=== PATIENT | female | born 1955 | race Caucasian/White ===

== ENCOUNTER → 2024-01-11 10:12 | Outpatient (REF) | payer MEDICARE, SELFPAY | LOC: HWWDC 10:12 | PROVIDERS: ATTENDING PHYSICIAN Obstetrics & Gynecology Gynecology; FAMILY PHYSICIAN Internal Medicine | DX: Z12.31 Encounter for screening mammogram for malignant neoplasm of breast (principal) | CPT/HCPCS: 77063; 77067 ==

== ENCOUNTER → 2024-08-15 09:34 | Outpatient (REF) | payer MEDICARE, SELFPAY ==
[2024-08-15 11:30] LABS: Hematocrit 42.8 % (37.0-47.0); Mean Corp Hgb Conc. 32.7 g/dL (33.0-37.0); Mean Corpuscular Volume 91.8 fL (81.0-99.0); Mean Platelet Volume 9.3 fL (7.4-10.4); Platelet Count 253 10^3/uL (130-400); Red Blood Cell Count 4.66 10^6/uL (4.20-5.40); Red Cell Dist. Width 13.1 % (11.5-14.5); White Blood Cell Count 6.8 10^3/uL (4.8-10.8)
[2024-08-15 11:55] LABS: Blood Urea Nitrogen 15 mg/dl (7-17); Calcium 9.6 mg/dl (8.4-10.2); Carbon Dioxide 28 mmol/L (22-30); Chloride 104 mmol/L (98-107); Glucose 112 mg/dl (70-99); Potassium 4.3 mmol/L (3.5-5.1); Sodium 142 mmol/L (135-145); eGFR > 60.00
== END ==
LOC: SDSPAT 09:34
PROVIDERS: ATTENDING PHYSICIAN Specialist; FAMILY PHYSICIAN Internal Medicine
DX: Z01.818 Encounter for other preprocedural examination (principal)
CPT/HCPCS: 36415; 80048; 85027; 93005

== ENCOUNTER 2024-08-20 06:19 | Day surgery (SDC) | payer MEDICARE, SELFPAY ==
--- NOTE | 2024-08-15 13:38 | PTCARENOTE ---
Preop EKG shows nonspecific T wave abnormality, see prior EKG scanned dated 09/29/21 showing prior history.
[2024-08-15 14:09] VITALS: BMI 19.8
[2024-08-20] VITALS (10 sets, daily range): BP systolic 92–149; BP diastolic 59–82; BMI 19.8
[2024-08-20] MEDS: NORMOSOL-R/PLASMALYTE-A 1000 IV (10:28)
[2024-08-20] MEDS: Pyridium 200 MG PO (15:59)
[2024-08-20] MEDS: DETROL LA 4 MG PO (15:59)
[2024-08-20] MEDS: ZOFRAN 4 MG IV (16:04)
[2024-08-20] MEDS: TYLENOL 650 MG PO (17:28)
== END 2024-08-20 17:53 | disposition home or self-care (01) ==
LOC: SDS 06:19
PROVIDERS: ATTENDING PHYSICIAN Specialist; FAMILY PHYSICIAN Internal Medicine
DX: N20.2 Calculus of kidney with calculus of ureter (principal)
CPT/HCPCS: 52356; 74018; 76000; 82365; A4300; C1894; C2617

== ENCOUNTER → 2024-12-18 08:11 | Outpatient (REF) | payer MEDICARE, SELFPAY ==
[2024-12-18 08:55] LABS: Hematocrit 41.5 % (37.0-47.0); Hemoglobin 13.6 g/dL (12.0-16.0); Mean Corp Hgb Conc. 32.8 g/dL (33.0-37.0); Mean Corpuscular Volume 93.7 fL (81.0-99.0); Platelet Count 236 10^3/uL (130-400); Red Cell Dist. Width 13.8 % (11.5-14.5)
== END ==
LOC: SDSPAT 08:11
PROVIDERS: ATTENDING PHYSICIAN Obstetrics & Gynecology; FAMILY PHYSICIAN Internal Medicine
DX: Z01.818 Encounter for other preprocedural examination (principal)
CPT/HCPCS: 36415; 85027

== ENCOUNTER 2024-12-30 05:53 | Day surgery (SDC) | payer MEDICARE, SELFPAY ==
[2024-12-18 14:06] VITALS: BMI 24.4
[2024-12-30] VITALS (7 sets, daily range): BP systolic 114–148; BP diastolic 58–87; BMI 24.4
[2024-12-30] MEDS: NORMOSOL-R/PLASMALYTE-A 1000 IV (06:30)
[2024-12-30] MEDS: ZOFRAN 4 MG IV (09:22)
[2024-12-30] MEDS: TYLENOL 650 MG PO (10:00)
== END 2024-12-30 10:15 | disposition home or self-care (01) ==
LOC: SDS 05:53
PROVIDERS: ATTENDING PHYSICIAN Obstetrics & Gynecology; FAMILY PHYSICIAN Internal Medicine
DX: N90.7 Vulvar cyst (principal)
CPT/HCPCS: 11423; 88304

== ENCOUNTER → 2025-01-14 10:29 | Outpatient (REF) | payer MEDICARE, SELFPAY | LOC: HWWDC 10:29 | PROVIDERS: ATTENDING PHYSICIAN Obstetrics & Gynecology Gynecology; FAMILY PHYSICIAN Internal Medicine | DX: Z12.31 Encounter for screening mammogram for malignant neoplasm of breast (principal) | CPT/HCPCS: 77063; 77067 ==

== ENCOUNTER 2025-01-17 10:06 | Emergency (ER) | payer MEDICARE, SELFPAY ==
[2025-01-17] VITALS (7 sets, daily range): BP systolic 108–149; BP diastolic 67–88; BMI 28.7
[2025-01-17 11:27] LABS: Hematocrit 40.8 % (37.0-47.0); Hemoglobin 13.6 g/dL (12.0-16.0); Mean Corp Hgb Conc. 33.3 g/dL (33.0-37.0); Mean Corpuscular Volume 91.5 fL (81.0-99.0); Nucleated Red Blood Cells % 0 %; Platelet Count 211 10^3/uL (130-400); Red Cell Dist. Width 13.1 % (11.5-14.5)
--- NOTE | 2025-01-17 11:35 | ED.GENMED ---
History of Present Illness
General
Chief Complaint: Abdominal Symptoms
Source: patient
Exam Limitations: none
Time Seen by Provider: 01/17/25 11:13
History of Present Illness
History of Present Illness:
69-year-old female with history of diverticulitis and kidney stones presents with the onset of left lower abdominal pain that radiates to the back starting yesterday. She notes is constant sharp in nature rates of 7 out of 10. No associated nausea
or vomiting or urinary symptoms. No fevers. She feels as though it feels similar to her diverticulitis in the past. No other complaints at this time.
Phy Exam
Physical Exam
Physical Exam:
General: Well-appearing female no acute respiratory distress
HEENT: Normocephalic atraumatic
Heart: Regular rate and rhythm
Lungs: Clear no wheeze
Abdomen soft tender to the left lower quadrant no guarding nondistended
Extremities: No cyanosis
Course
Orders/Labs/Results
Orders:
Orders
01/17/25 11:11
IV Insert/Care/Rem.- Treatment PRN
01/17/25 11:20
Complete Blood Count/With Diff Urgent
Comprehensive Metabolic Panel Urgent
Lipase Urgent
01/17/25 11:31
0.9% Sodium Chloride 1000 ml [Nss] 1,000 ml IV BOLUS
Ketorolac [Toradol] 15 mg IV NOW STA
01/17/25 12:18
CT Abd/pelvis W Iv Cont Urgent
Comment:
Reason For Exam: llq pain
01/17/25 12:45
Urinalysis Reflex To Culture Urgent
Date Specimen was Collected: 01/17/25
Time Specimen was Collected: 11:11
Urine Microscopic Reflex Cult Urgent
Abnormal Lab Results
01/17/25 01/17/25
11:20 12:45
Absolute Monos (auto) 0.7 H 10^3/uL
(0.1-0.6)
Monocytes % 9.6 H %
(1.7-9.3)
Glucose 110 H mg/dl
(70-99)
Ur Occult Blood Reflex 1+ A
(Negative)
01/17/25 11:20
01/17/25 11:20
Vital Signs
Initial and Last Documented VS:
Initial Vital Signs
Temp Pulse Resp BP Pulse Ox
98.0 F 73 18 139/82 98
01/17/25 10:08 01/17/25 10:08 01/17/25 10:08 01/17/25 10:08 01/17/25 10:08
Last Documented Vital Signs
Temp Pulse Resp BP Pulse Ox
98.0 F 76 18 148/87 96
01/17/25 10:08 01/17/25 12:03 01/17/25 12:03 01/17/25 14:44 01/17/25 14:45
MDM/Problems Addressed
Differential Diagnosis Includes:
Left lower abdominal pain. Consider diverticulitis versus abscess versus renal colic versus constipation versus UTI
Check urine and labs. CT of the abdomen with IV contrast ordered Toradol ordered for pain fluids ordered
*Pulse Oximetry
SaO2: 98
Oxygen Mode of Delivery: Room air
Patient hypoxic: no
*Critical Care Note
Total Time (30-74mins, 75-104mins- exclusive of procedures): Not Applicable
Update Note
Update Note:
CT demonstrates acute mild sigmoid diverticulitis without abscess. White count normal patient appears comfortable. She had a regimen of antibiotics about 2 months ago for diverticulitis that included Flagyl which she does not tolerate well. Will
try Augmentin. Stable for discharge
ED Attending Note
-
Portions of this chart may have been created with voice recognition software.� Occasional wrong word or��sound alike� substitutions may have occurred due to the inherent limitations of voice recognition software.
Discharge Plan
Departure
Patient Disposition: Home (Routine Discharge)
Date of Disposition: 01/17/25
Time of Disposition: 14:59
Patient with high blood pressure during this ER visit?: No
Discharge Problem:
Acute diverticulitis
Instructions: Diverticulitis
Prescriptions:
New
amoxicillin-pot clavulanate 875-125 mg tablet
1 tab PO BID Qty: 20 0RF
No Action
aspirin 81 mg Tablet,Delayed Release (Dr/Ec)
81 mg PO HS
vitamin B complex Tablet
1 tab PO HS
rosuvastatin [Crestor] 10 mg Tablet
10 mg PO HS
cholecalciferol (vitamin D3) [Vitamin D3] 50 mcg (2,000 unit) Capsule
50 mcg PO HS
coQ10 (ubiquinol) 200 mg Capsule
200 mg PO DAILY
albuterol sulfate 90 mcg/actuation Hfa Aerosol Inhaler
2 puff INHALATION PRN PRN (Reason: SOB, Wheezes)
methocarbamol 500 mg Tablet
500 mg PO PRN PRN (Reason: back pain)
fluticasone furoate [Arnuity Ellipta] 200 mcg/actuation Blister With Device
1 inh INHALATION DAILY PRN (Reason: respiratory infection)
Metamucil
5 cap PO DAILY
Miralax
1 cap PO PRN PRN (Reason: constipation)
chromium picolinate 800 mcg tablet
1 tab PO DAILY
Excedrin Migraine 250-250-65 mg Tablet
1 tab PO PRN PRN (Reason: migraine)
Referrals:
Stephanie Alexandra MD [Family Provider, Internal Medicine]
Activity Restrictions/Additional Instructions:
Drink plenty of clear liquids. Use Tylenol or ibuprofen for pain. Use antibiotic as directed. Return here for increasing pain fever or vomiting
Interventions
Interventions:
*Risk Screen - Suicide Last Done: 01/17/25 10:08
*General Assessment Last Done: 01/17/25 11:23
*Neglect/Abuse Screening Last Done: 01/17/25 11:23
*ED- Fall Risk Assessment Last Done: 01/17/25 11:23
*ED COVID-19 Vaccine History Last Done: 01/17/25 11:23
CQ-Htgfbh-Dbooughdbp Assessment Last Done: 01/17/25 11:23
Discharge Date and Time
Print Language: MOROCCAN
[2025-01-17 11:47] LABS: ALT (SGPT) 25 U/L (0-35); AST (SGOT) 23 U/L (14-36); Albumin 4.2 g/dl (3.5-5.0); Alkaline Phosphatase 58 U/L (38-126); Blood Urea Nitrogen 13 mg/dl (7-17); Calcium 9.5 mg/dl (8.4-10.2); Carbon Dioxide 29 mmol/L (22-30); Chloride 105 mmol/L (98-107); Glucose 110 mg/dl (70-99); Lipase 73 U/L (23-300); Potassium 4.5 mmol/L (3.5-5.1); Sodium 138 mmol/L (135-145); Total Protein 6.4 g/dl (6.3-8.2); eGFR > 60.00
[2025-01-17] MEDS: TORADOL 15 MG IV (11:58)
[2025-01-17] MEDS: NSS 1000 IV (11:59)
[2025-01-17 12:59] LABS: Urine Character Clear (Clear)
[2025-01-17 13:41] LABS: Urine Squamous Cell 16-20 /LPF (Few)
[2025-01-17 13:44] LABS: Urine Red Blood Cell 0-2 /HPF (0-2); Urine White Cell 0-2 /HPF (0-5)
== END 2025-01-17 15:31 | disposition home or self-care (01) ==
LOC: EMR 10:06
PROVIDERS: EMERGENCY PHYSICIAN Emergency Medicine; FAMILY PHYSICIAN Internal Medicine
DX: K57.32 Diverticulitis of large intestine without perforation or abscess without bleeding (principal); Z87.442 Personal history of urinary calculi
CPT/HCPCS: 96374; 96361; 99284; 74177; 80053; 81003; 81015; 83690; 85025; Q9967

== ENCOUNTER 2025-01-28 07:37 | Emergency (ER) | payer MEDICARE, SELFPAY ==
[2025-01-28] VITALS (7 sets, daily range): BP systolic 119–144; BP diastolic 66–97; BMI 28.4
--- NOTE | 2025-01-28 09:25 | ED.GENMED ---
History of Present Illness
<Will Pemberton PA-C - Last Filed: 01/28/25 13:28>
General
Chief Complaint: Abdominal Pain
Source: patient
Exam Limitations: none
Time Seen by Provider: 01/28/25 09:01
History of Present Illness
History of Present Illness:
69-year-old female presents for reevaluation. I saw her just over 10 days ago for left lower quadrant abdominal pain. She was diagnosed with diverticulitis and started on Augmentin. She finished the Augmentin yesterday. She complains of
persistent pain to the lower abdomen now radiating to the left flank posteriorly. At the time of her visit she had a CT scan which also demonstrated a rounded lesion of the right adnexa. She is concerned this may be causing her discomfort as well.
In December of this year she had a vulvar cyst removed and has been having right leg and posterior hip and buttock pain since the surgery. This is also persistent worse with weightbearing. No fevers. No vomiting. No urinary symptoms. No chest
pain or shortness of breath.
Phy Exam
<Will Pemberton PA-C - Last Filed: 01/28/25 13:28>
Physical Exam
Physical Exam:
General: Well-appearing female no acute respiratory distress
HEENT: Normal cephalic atraumatic
Heart: Regular rate and rhythm
Lungs: Clear no wheeze
Abdomen is soft but tender to the left lower quadrant and mildly to the left lumbar sacral junction and suprapubic area. Nondistended no guarding
Musculoskeletal exam: The right leg is tender over the greater trochanteric area. There is no pain with internal/external rotation. The lumbar spine is nontender
Course
<Will Pemberton PA-C - Last Filed: 01/28/25 13:28>
Orders/Labs/Results
Orders:
Orders
01/28/25 09:22
CT Abd/pelvis W Iv Cont Urgent
Comment:
Reason For Exam: llq and flank pain
0.9% Sodium Chloride 1000 ml [Nss] 1,000 ml IV BOLUS
US Pelvis Only (non-obstetric) Urgent
Comment:
Reason For Exam: lower abdominal pain, lesion on right adnexa
01/28/25 09:27
Ketorolac [Toradol] 15 mg IV NOW STA
01/28/25 09:29
Complete Blood Count/With Diff Urgent
Comprehensive Metabolic Panel Urgent
01/28/25 09:30
Venous Doppler Lwr Ext Rt [US Periph Venous LOWER Ext RT] Urgent
Comment:
Reason For Exam: pain in leg, recent surgery
01/28/25 10:59
Urinalysis Reflex To Culture Urgent
Date Specimen was Collected: 01/28/25
Time Specimen was Collected: 10:53
Urine Microscopic Reflex Cult Urgent
Abnormal Lab Results
01/28/25 01/28/25
09 10:59
Glucose 110 H mg/dl
(70-99)
Ur Occult Blood Reflex 1+ A
(Negative)
Urine Albumin (Reflex) 1+ A
(Neg - Trace)
01/28/25 09:29
01/28/25 09:29
Vital Signs
Initial and Last Documented VS:
Initial Vital Signs
Temp Pulse Resp BP Pulse Ox
97.9 F 69 18 127/87 95
01/28/25 07:52 01/28/25 07:52 01/28/25 07:52 01/28/25 07:52 01/28/25 07:52
Last Documented Vital Signs
Temp Pulse Resp BP Pulse Ox
97.9 F 69 18 128/66 95
01/28/25 07:52 01/28/25 07:52 01/28/25 07:52 01/28/25 13:00 01/28/25 09:27
<Alonzo Negrete MD - Last Filed: 01/28/25 09:58>
Orders/Labs/Results
Orders:
Orders
01/28/25 09:22
CT Abd/pelvis W Iv Cont Urgent
Comment:
Reason For Exam: llq and flank pain
0.9% Sodium Chloride 1000 ml [Nss] 1,000 ml IV BOLUS
US Pelvis Only (non-obstetric) Urgent
Comment:
Reason For Exam: lower abdominal pain, lesion on right adnexa
01/28/25 09:27
Ketorolac [Toradol] 15 mg IV NOW STA
01/28/25 09:29
Complete Blood Count/With Diff Urgent
Comprehensive Metabolic Panel Urgent
01/28/25 09:30
Venous Doppler Lwr Ext Rt [US Periph Venous LOWER Ext RT] Urgent
Comment:
Reason For Exam: pain in leg, recent surgery
01/28/25 10:59
Urinalysis Reflex To Culture Urgent
Date Specimen was Collected: 01/28/25
Time Specimen was Collected: 10:53
Urine Microscopic Reflex Cult Urgent
Abnormal Lab Results
01/28/25 01/28/25
09:29 10:59
Glucose 110 H mg/dl
(70-99)
Ur Occult Blood Reflex 1+ A
(Negative)
Urine Albumin (Reflex) 1+ A
(Neg - Trace)
01/28/25 09:29
01/28/25 09:29
Vital Signs
Initial and Last Documented VS:
Initial Vital Signs
Temp Pulse Resp BP Pulse Ox
97.9 F 69 18 127/87 95
01/28/25 07:52 01/28/25 07:52 01/28/25 07:52 01/28/25 07:52 01/28/25 07:52
Last Documented Vital Signs
Temp Pulse Resp BP Pulse Ox
97.9 F 69 18 128/66 95
01/28/25 07:52 01/28/25 07:52 01/28/25 07:52 01/28/25 13:00 01/28/25 09:27
<Will Pemberton PA-C - Last Filed: 01/28/25 13:28>
MDM/Problems Addressed
Differential Diagnosis Includes:
Patient with persistent and increased lower abdominal pain and left flank pain. Also concerned about rounded lesion noted on right adnexa seen on last CT scan. Consider persistent diverticulitis versus complicated diverticulitis versus worsening
adnexal lesion. Order CT as well as ultrasound. Labs pending.
<Will Pemberton PA-C - Last Filed: 01/28/25 13:28>
*Pulse Oximetry
SaO2: 95
Oxygen Mode of Delivery: Room air
Patient hypoxic: no
*Critical Care Note
Total Time (30-74mins, 75-104mins- exclusive of procedures): Not Applicable
<Will Pemberton PA-C - Last Filed: 01/28/25 13:28>
Update Note
Update Note:
Workup here with ultrasound of leg, pelvis and CT of the abdomen were performed. CT of the abdomen shows no acute infectious process. The right adnexal mass that was seen on last CT is actually 4 cm posterior to the right ovary on today's CAT
scan. This is actually closer to the colon. There is stability noted in this area which would suggest that it is likely benign. No active diverticulitis. Ultrasound of leg is negative for DVT. Explained patient these results. Printed out the
CT report and gave it to the patient for review recommend follow-up with her person who does her colonoscopies and gynecology.
ED Attending Note
<Will Pemberton PA-C - Last Filed: 01/28/25 13:28>
-
Portions of this chart may have been created with voice recognition software.� Occasional wrong word or��sound alike� substitutions may have occurred due to the inherent limitations of voice recognition software.
<Alonzo Negrete MD - Last Filed: 01/28/25 09:58>
ED Attending Note
Patient seen and examined by attending physician: Yes
I performed the substantive portion of visit, reviewed & personally made and approve the management plan that is documented in note by myself or CHRISTOPHER.: Yes
ED Attending Note:
69-year-old female returns with increasing left-sided abdominal pain with radiation to the left back. Started progressing 2 to 3 days ago. No fever or chills. No urinary symptoms. Recent diagnosis of diverticulitis and just finished Augmentin.
Vulvar area is healing well. Patient has had no issues with this. She also has been having some right upper lateral pelvic pain since her surgical procedure 1 month ago. No pain shooting down the legs.
On exam patient is nontoxic in no distress. She has no pain with rotation of the left or right hip. She has good distal pulses and color. She has no tenderness over the greater trochanter. Pain is located along the lateral iliac wing. Abdomen
is soft. Mild left lower quadrant tenderness. No rebound or guarding no mass or hernia. Warm and dry perfusing well no respiratory distress
Impression primarily here for left lower quadrant/flank pain. Main differential would be ongoing diverticulitis versus kidney stone issue. Workup in progress. Await CT and urine. As for the right flank or iliac wing issue this appears to be
orthopedic. Doubt this is related either to her pelvic adnexal mass or through her left-sided issues. We will get an ultrasound of the leg to rule out DVT.
Discharge Plan
Departure
Patient Disposition: Home (Routine Discharge)
Date of Disposition: 01/28/25
Time of Disposition: 13:27
Patient with high blood pressure during this ER visit?: No
Discharge Problem:
Abdominal pain
Instructions: Abdominal Pain
Prescriptions:
No Action
aspirin 81 mg Tablet,Delayed Release (Dr/Ec)
81 mg PO HS
vitamin B complex Tablet
1 tab PO HS
rosuvastatin [Crestor] 10 mg Tablet
10 mg PO HS
cholecalciferol (vitamin D3) [Vitamin D3] 50 mcg (2,000 unit) Capsule
50 mcg PO HS
coQ10 (ubiquinol) 200 mg Capsule
200 mg PO DAILY
albuterol sulfate 90 mcg/actuation Hfa Aerosol Inhaler
2 puff INHALATION PRN PRN (Reason: SOB, Wheezes)
methocarbamol 500 mg Tablet
500 mg PO PRN PRN (Reason: back pain)
fluticasone furoate [Arnuity Ellipta] 200 mcg/actuation Blister With Device
1 inh INHALATION DAILY PRN (Reason: respiratory infection)
Metamucil
5 cap PO DAILY
Miralax
1 cap PO PRN PRN (Reason: constipation)
chromium picolinate 800 mcg tablet
1 tab PO DAILY
[id number]-bgqbtfma [Excedrin Migraine] 250-250-65 mg Tablet
1 tab PO PRN PRN (Reason: migraine)
amoxicillin-pot clavulanate 875-125 mg tablet
1 tab PO BID Qty: 20 0RF
Referrals:
Stephanie Alexandra MD [Family Provider, Internal Medicine]
Activity Restrictions/Additional Instructions:
As discussed, please follow-up with your doctors for further evaluation. Return if worse otherwise
Interventions
Interventions:
*Risk Screen - Suicide Last Done: 01/28/25 07:52
*General Assessment Last Done: 01/28/25 07:52
*Neglect/Abuse Screening Last Done: 01/28/25 09:13
*ED- Fall Risk Assessment Last Done: 01/28/25 09:10
*ED COVID-19 Vaccine History Last Done: 01/28/25 09:10
YK-Qkwaeh-Sumxzqptcw Assessment Last Done: 01/28/25 09:13
Discharge Date and Time
Print Language: DANISH
[2025-01-28] MEDS: NSS 1000 IV (09:33)
[2025-01-28] MEDS: TORADOL 15 MG IV (09:38)
[2025-01-28 09:44] LABS: Hematocrit 40.4 % (37.0-47.0); Hemoglobin 13.6 g/dL (12.0-16.0); Mean Corp Hgb Conc. 33.7 g/dL (33.0-37.0); Mean Corpuscular Volume 91.2 fL (81.0-99.0); Nucleated Red Blood Cells % 0 %; Platelet Count 236 10^3/uL (130-400); Red Cell Dist. Width 12.7 % (11.5-14.5)
[2025-01-28 10:10] LABS: ALT (SGPT) 20 U/L (0-35); AST (SGOT) 22 U/L (14-36); Albumin 4.2 g/dl (3.5-5.0); Alkaline Phosphatase 59 U/L (38-126); Blood Urea Nitrogen 17 mg/dl (7-17); Calcium 9.4 mg/dl (8.4-10.2); Carbon Dioxide 25 mmol/L (22-30); Chloride 107 mmol/L (98-107); Estimated Creatinine Clearance 98 ml/min; Glucose 110 mg/dl (70-99); Potassium 4.2 mmol/L (3.5-5.1); Sodium 139 mmol/L (135-145); Total Protein 6.3 g/dl (6.3-8.2); eGFR > 60.00
[2025-01-28 11:12] LABS: Urine Character Clear (Clear)
[2025-01-28 11:33] LABS: Urine Red Blood Cell 0-2 /HPF (0-2); Urine White Cell 0-2 /HPF (0-5)
[2025-01-28 11:34] LABS: Urine Urothelial Cell 0-2 /LPF (FEW)
== END 2025-01-28 14:03 | disposition home or self-care (01) ==
LOC: EMR 07:37
PROVIDERS: Physician Assistant; EMERGENCY PHYSICIAN Emergency Medicine; FAMILY PHYSICIAN Internal Medicine
DX: R10.32 Left lower quadrant pain (principal); M79.604 Pain in right leg; N88.8 Other specified noninflammatory disorders of cervix uteri; Z90.49 Acquired absence of other specified parts of digestive tract; Z87.19 Personal history of other diseases of the digestive system
CPT/HCPCS: 96374; 96361; 99284; 74177; 76856; 80053; 81003; 81015; 85025; 93971; Q9967